=== PATIENT | female | born 2005 | race Caucasian/White ===

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

== ENCOUNTER → 2023-01-12 12:59 | Outpatient (BNVA) | payer MEDICAID, SELFPAY | PROVIDERS: PCP Family Medicine; Visit Provider Clinical Nurse Specialist Adult Health | DX: Z30.09 Encounter for other general counseling and advice on contraception (principal); Z30.016 Encounter for initial prescription of transdermal patch hormonal contraceptive device | CPT/HCPCS: 81025 ==

== ENCOUNTER → 2023-02-12 10:59 | Outpatient (BNVA) | payer MEDICAID, SELFPAY | PROVIDERS: PCP Family Medicine; Visit Provider Nurse Practitioner Family | DX: S62.034A Nondisplaced fracture of proximal third of navicular [scaphoid] bone of right wrist, initial encounter for closed fracture (principal); M25.531 Pain in right wrist; X58.XXXA Exposure to other specified factors, initial encounter | CPT/HCPCS: 73110 ==

== ENCOUNTER 2023-02-14 17:42 | Emergency (ER) | payer MEDICAID, SELFPAY ==
[2023-02-14 18:15] VITALS: BMI 30.6
[2023-02-14 18:18] VITALS: BP 104/72; PULSE 85; RESP 18; TEMP 36.7; O2SAT 98
--- NOTE | 2023-02-14 19:13 | ED_ITS ---
HPI - Extremity Problem General: Chief complaint: Extremity Injury, Upper Stated complaint: Right hand injury Time Seen by Provider: 02/14/23 19:13 History of Present Illness: 17-year-old female comes in today for injury to the right hand. Patient was seen 2 days ago at the walk-in clinic and diagnosed with a fracture of the wrist. Review of the x-rays noted a scaphoid fracture. Patient received a call today that they would not be able to see her at the local orthopedic clinic. Patient comes into the emergency room tonight in order to get further direction and treatment options for her fracture. Patient at this time has a Velcro splint in place with thumb support. Mild swelling is noted to the dorsal hand. Cap refill is intact. Review of Systems General: Reports: 10 or more systems reviewed and unremarkable except in HPI and below Musc: Reports: extremity pain and extremity swelling [facility] ED PFSH: Medical History Intrauterine Migraine headache without aura Viral sore throat Social History Smoking and tobacco status: never smoked Second hand smoke exposure: Yes Female Reproductive History: Date of last menstrual period: 01/18/23 Physical Exam Const: COMMON NORMALS: alert HENMT: COMMON NORMALS: normocephalic HEAD & SCALP: normocephalic Neck/C-Spine: COMMON NORMALS: full ROM Resp: COMMON NORMALS: normal respiratory effort Cardio: COMMON NORMALS: regular rate RATE: regular rate Back/Pelvis: COMMON NORMALS: thoracic and lumbar spine normal to inspection Extremity: RIGHT UPPER EXTREMITY: Yes hand & digits (Velcro thumb spica/wrist support, minimal swelling, normal sensation) Right hand and digits: Yes inspection, Yes palpation and Yes ROM exam Neuro: SENSORIUM/ORIENTATION: Yes alert Skin: COMMON NORMALS: turgor normal GENERAL SKIN EXAM: turgor normal Course Vital Signs: Vital signs: Vital Signs Temperature 98.0 F 02/14/23 18:18 Pulse Rate 85 02/14/23 18:18 Respiratory Rate 18 02/14/23 18:18 Blood Pressure 104/72 02/14/23 18:18 Pulse Oximetry 98 02/14/23 18:18 Oxygen Delivery Me thod Room Air 02/14/23 18:18 MDM - Extremity (Nontraumatic) Medical Decision Making 17-year-old female comes in today with injury to the right wrist that occurred 2 days prior. Review of the previous record noted a x-ray that showed a scaphoid fracture of the proximal third. Patient came in the ER today due not being able to be followed up at the local orthopedic clinic. Differential diagnosis includes but not limited to wrist fracture, wrist pain, neurovascular compromise, malingering. No significant swelling or neurovascular changes were noted on exam. Reviewed x-ray with patient. Stressed the importance of maintaining thumb splint support and need for follow-up with orthopedic surgeon. We will place a consult with case management to assist with this follow-up appointment. Patient reported understanding and agreed to plan. Discharge Plan Discharge Patient Disposition: Home Clinical Impression: Fracture of scaphoid bone of right wrist Qualifiers: Encounter type: initial encounter Scaphoid bone location: proximal third Fracture type: closed Fracture alignment: nondisplaced Qualified Code(s): S62.034A - Nondisplaced fracture of proximal third of navicular [scaphoid] bone of right wrist, initial encounter for closed fracture Condition: Stable Prescriptions: New hydrocodone-acetaminophen 5-325 mg tablet 1 tab PO Q8H PRN (Reason: pain (scale score 7-10)) Qty: 10 0RF No Action sertraline 25 mg tablet 25 mg PO DAILY Qty: 30 3RF fluticasone propionate 50 mcg/actuation spray,suspension 2 spray intranasal DAILY PRN (Reason: nasal congestion) Qty: 16 0RF Rx Instructions: administer into each nostril loratadine 10 mg tablet 10 mg PO Q24H Qty: 30 0RF Xulane 150-35 mcg/24 hr patch weekly 1 patch transdermal Q7D Qty: 3 11RF Rx Instructions: apply once weekly for 3 weeks of a 4-week cycle tramadol 50 mg tablet 50 mg PO TID PRN (Reason: pain) Qty: 30 0RF Vitamin 27 mg iron- 800 mcg tablet 1 tab PO DAILY Qty: 30 3RF Discharge Orders: Discharge ED (Routine); Ordered 02/14/23 Ordered By: Jose Cortez Referrals: Reji Guzmán MD [Primary Care Provider] - Discharge Diet: Usual diet Discharge Activity: Increase activity as tolerated Patient Instructions: Scaphoid Fracture (ED) Activity Restrictions/Additional Instructions: Keep splint in place all the time. Use acetaminophen and ibuprofen to control pain. Use hydrocodone for severe pain. Elevate hand to help with swelling. Follow-up with hand surgeon for further evaluation and treatment. Case management should contact you to assist with follow-up appointment. Return to ER for new concerns. Coding Level of Care Code ED Wallpaper Inspector for Fabian Nava
[2023-02-14 19:40] VITALS: BP 104/72; PULSE 85; RESP 18; TEMP 36.7; O2SAT 98
[2023-02-14] MEDS: HYDROcodone-acetaminophen 5-325 mg Tablet 1 TAB PO (19:40)
--- NOTE | 2023-02-15 10:40 | DCPLANNER ---
Addendum entered by Ángela Celeste 02/16/23 11:40: city maintenance manager called [facility] to confirm that patients information had been received. city maintenance manager told that patients information had been received, it will be reviewed, and clinic will call patient with appointment information. Original Note: city maintenance manager had message to refer patient to a hand surgeon in [place]. city maintenance manager spoke with patient, she would like for referral to be sent to Marie. city maintenance manager faxed patients information to [facility]. Patients information will be reviewed. Clinic will call patient with appointment information.
== END 2023-02-14 19:42 | disposition home or self-care (01) ==
PROVIDERS: Emergency Provider Nurse Practitioner Family; PCP Family Medicine
DX: S62.034A Nondisplaced fracture of proximal third of navicular [scaphoid] bone of right wrist, initial encounter for closed fracture (principal); X58.XXXA Exposure to other specified factors, initial encounter
CPT/HCPCS: 99283

== ENCOUNTER → 2023-08-06 17:49 | Outpatient (BNVA) | payer MEDICAID, SELFPAY | PROVIDERS: PCP Family Medicine; Visit Provider Nurse Practitioner | DX: R51.9 Headache, unspecified (principal); A08.4 Viral intestinal infection, unspecified | CPT/HCPCS: 87400 ==

== ENCOUNTER 2023-09-03 15:16 | Emergency (ER) | payer MEDICAID, SELFPAY ==
[2023-09-03 15:22] VITALS: BP 122/80; PULSE 83; RESP 12; TEMP 36.6; O2SAT 98; BMI 32.9
--- NOTE | 2023-09-03 15:58 | XRR_ITS ---
PROCEDURE INFORMATION: Exam: XR Chest Exam date and time: 09/03/2023 4:04 PM Age: 17 years old Clinical indication: Chest wall pain and left-sided; Additional info: L lower chest/rib pain TECHNIQUE: Imaging protocol: Radiologic exam of the chest. Views: 1 view. COMPARISON: CR XR ribs LT mn 3V w CXR1V [id number] 09/17/2017 5:28 PM FINDINGS: Lungs: No significant active pathology. Pleural spaces: No pleural effusion or pneumothorax. Heart/Mediastinum: Unremarkable. Bones/joints: No significant pathology. XR/XR chest 1V portable [id number] IMPRESSION: No significant active disease.
--- NOTE | 2023-09-03 16:07 | W.ED.GENADLT ---
Documented by User: ELÍAS Cristina 09/03/23 16:10 HPI - General Adult General: Chief complaint: Urogenital-Female Stated complaint: left side pain, sob Time Seen by Provider: 09/03/23 15:46 Source: patient Mode of arrival: ambulatory Limitations: no limitations History of Present Illness: Patient is a 17-year-old female presents to ED today with a complaint of left-sided lateral chest/abdominal pain over the past week. Patient states she initially only noticed pain when she urinated. She was not complaining of dysuria, frequency, urgency, cloudy or odorous urine. She was not having any direct flank pain. Patient states over the course of the week pain has become progressively more constant and she now feels short of breath and nauseous. She is not having any vomiting. Bowel movements have been normal. No fevers. Onset (ago): day(s) Location: chest and abdomen Severity: moderate Pain Consistency: constant Relieving factors: none Exacerbating factors: other (feels like it is worse with urination) Associated symptoms: Reports chest pain (L lateral rib/chest pain), dyspnea and nausea; Deny headache(s), malaise, rash or vomiting Treatments prior to arrival: none Review of Systems Const: Denies: fever(s), chills, body aches, fatigue or malaise Card: Reports: chest pain (L lateral rib/chest pain) Resp: Reports: dyspnea; Denies: productive cough, non-productive cough, wheezing, hemoptysis or chest congestion GI: Reports: abdominal pain and nausea; Denies: vomiting, diarrhea or change in bowel habits : Denies: flank pain, difficulty voiding, dysuria, urinary frequency, urinary urgency or urinary hesitancy Musc: Denies: neck pain, back pain, extremity pain, extremity swelling or joint pain Skin/Breast: Denies: rash Neuro: Denies: headache(s), numbness in extremities, weakness in extremities, sensory changes, lack of coordination or dizziness [facility] ED PFSH: Medical History Viral sore throat Intrauterine Migraine headache without aura Social History Smoking and tobacco/nicotine status: never used tobacco/nicotine Second hand smoke exposure: Yes Physical Exam Const: COMMON NORMALS: no acute distress, average body habitus, patient oriented x3, no limitations, healthy appearing, alert and well nourished Eye: COMMON NORMALS: no scleral icterus Chest: COMMONS NORMALS: normal inspection of the chest OTHER: TTP L lower lateral chest wall Resp: COMMON NORMALS: normal respiratory effort and clear to auscultation bilaterally AUSCULTATION: clear to auscultation bilaterally Cardio: COMMON NORMALS: regular rate and regular rhythm RATE: regular rate RHYTHM: regular rhythm GI: COMMON NORMALS: Normal to inspection, nondistended, normoactive bowel sounds present, Soft to palpation, non-tender, No hepatosplenomegaly present and no masses PALPATION: Yes Soft to palpation and Yes No hepatosplenomegaly present : COMMON NORMALS: Yes no CVA tenderness BLADDER/KIDNEY EXAM: Yes no CVA tenderness Back/Pelvis: COMMON NORMALS: no CVA tenderness and thoracic and lumbar spine normal to inspection Extremity: COMMON NORMALS: normal to inspection GENERAL: Yes normal exam except as noted Neuro: CARMELLA COMA SCALE: document GCS findings [place] coma scale eye opening: Spontaneous [place] coma scale verbal response: Orientated [place] coma scale motor response: Obey commands [place] coma scale total score: 15 COMMON NORMALS: patient oriented x3, moves all extremities, no focal motor deficits, no sensory deficits noted and gait normal SENSORIUM/ORIENTATION: Yes alert Skin: COMMON NORMALS: no rashes or lesions noted GENERAL SKIN EXAM: no rashes or lesions noted Course Vital Signs: Vital signs: Vital Signs Temperature 97.9 F 09/03/23 15:22 Pulse Rate 83 09/03/23 15:22 Respiratory Rate 12 09/03/23 15:22 Blood Pressure 122/80 09/03/23 15:22 Pulse Oximetry 98 09/03/23 15:22 Oxygen Delivery Me thod Room Air 09/03/23 15:22 [facility] - General Adult Lab Data 09/03/23 16:10 09/03/23 16:50 Radiology Impressions Chest X-Ray 09/03/23 15:58 IMPRESSION: No significant active disease. Laboratory Results WBC 6.11 10^3/uL (4.5-13.0) 09/03/23 16:10 RBC 4.46 10^6/uL (3.85-5.65) 09/03/23 16:10 Hgb 13.40 g/dL (12.4-14.8) 09/03/23 16:10 Hct 40.6 % (36-47) 09/03/23 16:10 MCV 91.0 fl (85-98) 09/03/23 16:10 MCH 30.0 pg (27-33) 09/03/23 16:10 MCHC 33.0 g/dL (30-55) 09/03/23 16:10 RDW 13.3 % (12.1-15.1) 09/03/23 16:10 Plt Count 318 10^3/cmm (157-399) 09/03/23 16:10 MPV 9.9 fL (7.4-10.4) 09/03/23 16:10 Neut % (Auto) 62.7 % 09/03/23 16:10 Lymph % (Auto) 24.7 % 09/03/23 16:10 [place] % (Auto) 9.7 % 09/03/23 16:10 Eos % (Auto) 2.1 % 09/03/23 16:10 Baso % (Auto) 0.3 % 09/03/23 16:10 Neut # (Auto) 3.83 10^3/uL (1.8-8.0) 09/03/23 16:10 Lymph # (Auto) 1.5 10^3/uL (1.5-6.5) 09/03/23 16:10 Greene # (Auto) 0.6 10^3/uL (0.2-0.9) 09/03/23 16:10 Eos # (Auto) 0.1 10^3/uL (0.0-0.8) 09/03/23 16:10 Baso # (Auto) 0.0 10^3/uL (0.0-0.1) 09/03/23 16:10 Nucleated RBC % (auto) 0 % 09/03/23 16:10 Nucleated RBCs # 0.0 /100WBC 09/03/23 16:10 Sodium 137 mmol/L (136-145) 09/03/23 16:50 Potassium 4.1 mmol/L (3.5-5.1) 09/03/23 16:50 Chloride 102 mmol/L (98-107) 09/03/23 16:50 Carbon Dioxide 24 mmol/L (22-29) 09/03/23 16:50 Anion Gap 15.1 (5-19) 09/03/23 16:50 BUN 16 mg/dL (6-20) 09/03/23 16:50 Creatinine 0.5 mg/dL (0.5-0.9) 09/03/23 16:50 GFR Calculation 158.9 mL/min (90-130) H 09/03/23 16:50 Glucose 96 mg/dL (65-115) 09/03/23 16:50 Calculated Osmolality 285 mOsm/kg (285-295) 09/03/23 16:50 Calcium 9.3 mg/dL (8.5-10.5) 09/03/23 16:50 Total Bilirubin 0.5 mg/dL (0.15-1.2) 09/03/23 16:50 AST 14 U/L (0-32) 09/03/23 16:50 ALT 21 U/L (0-33) 09/03/23 16:50 Alkaline Phosphatase 71 U/L (35-105) 09/03/23 16:50 Total Protein 7.4 g/dL (6.6-8.7) 09/03/23 16:50 Albumin 4.3 g/dL (3.5-5.2) 09/03/23 16:50 Globulin 3.1 g/dL (1.3-4.6) 09/03/23 16:50 Lipase 24 U/L (13-60) 09/03/23 16:50 HCG, Qual Negative (Negative) 09/03/23 16:50 Urine Color Yellow (Yellow) 09/03/23 15:33 Urine Appearance Sl hazy (CLEAR) A 09/03/23 15:33 Urine pH 6 (5-7) 09/03/23 15:33 Ur Specific Nesbit 1.015 (1.005-1.030) 09/03/23 15:33 Urine Protein Neg (Negative) 09/03/23 15:33 Urine Glucose (UA) Norm (Normal) 09/03/23 15:33 Urine Ketones Negative (Negative) 09/03/23 15:33 Urine Blood Neg (Negative) 09/03/23 15:33 Urine Nitrate Negative (Negative) 09/03/23 15:33 Urine Bilirubin Neg (Negative) 09/03/23 15:33 Urine Urobilinogen 1 mg/dL (Negative) H 09/03/23 15:33 Ur Leukocyte Esterase 1+ (Negative) H 09/03/23 15:33 Urine RBC None /hpf (0-2) 09/03/23 15:33 Urine WBC 5-10 /hpf (0-5) H 09/03/23 15:33 Ur Squamous Epith Cells 0-4 /hpf (0-5) H 09/03/23 15:33 Amorphous Sediment Not Reportable 09/03/23 15:33 Urine Bacteria 1+ /hpf (NONE) H 09/03/23 15:33 Discharge Plan Discharge Patient Disposition: Home Clinical Impression: Urinary tract infection, Abdominal pain, acute, left upper quadrant Condition: Stable Prescriptions: New Macrobid 100 mg capsule 100 mg PO BID 7 Days Qty: 14 0RF Rx Instructions: must administer with a meal/food Discharge Orders: Discharge ED (Routine); Ordered 09/03/23 Ordered By: Akilah Manzano Referrals: Reji Guzmán MD [Primary Care Provider] - Discharge Diet: Usual diet Discharge Activity: Increase activity as tolerated Patient Instructions: Urinary Tract Infection in Women (DC), Abdominal Pain (ED) Activity Restrictions/Additional Instructions: Lab work and imaging today revealed no acute concerns however, your urine specimen did show signs of bacteria and infection starting to develop. For that reason, we are going to start you on antibiotics today which we encourage you to take as prescribed in its entirety. This medication may make your urine a little orange or even slightly red in color which is due to the medication. We encourage you to increase your clear fluids during this time. Carefully monitor for any new onset fever, pain in your mid back, vomiting, or low abdominal pain. If any of these agree need to be seen and reevaluated again. We also encourage you to have a follow-up appoint with your primary care doctor after the course of your antibiotics is completed to ensure full resolution of any infectious findings in your urine. Sign Out Sign Out Data: Patient Sign Out occurred on 09/03/23 at 17:05. Patient's care was discussed, and care was transferred from ELÍAS Cristina to ELÍAS Negrete. Coding Level of Care Code ED Process Equipment Operator for Chg Fwd Documented by User: ELÍAS Negrete 09/03/23 17:55 HPI - General Adult General: Chief complaint: Urogenital-Female Stated complaint: left side pain, sob Time Seen by Provider: 09/03/23 15:46 PFSH ED PFSH: Medical History Viral sore throat Intrauterine Migraine headache without aura Social History Smoking and tobacco/nicotine status: never used tobacco/nicotine Second hand smoke exposure: Yes Physical Exam Neuro: CARMELLA COMA SCALE: document GCS findings [place] coma scale total score: 15 Course Vital Signs: Vital signs: Vital Signs Temperature 97.9 F 09/03/23 15:22 Pulse Rate 83 09/03/23 15:22 Respiratory Rate 12 09/03/23 15:22 Blood Pressure 122/80 09/03/23 15:22 Pulse Oximetry 98 09/03/23 15:22 Oxygen Delivery Me thod Room Air 09/03/23 15:22 MDM - General Adult Medical Decision Making Akilah Manzano PA-C: Transfer of care from Martha Ayala PA-C at 1700. Martha explained that the patient has already had a negative chest x-ray and the lab work had clotted so, had to repeat it. We are waiting on lab work but, she indicated urinalysis does show signs of an infection. Discussed treatment for UTI if all other lab work is within normal limits. Patient has relatively unremarkable lab work when it returns. Discussed with the patient negative findings on lab and x-ray but recommendation was that she receive treatment for urinary infection. Patient was given strict return precautions for signs of pyelonephritis but, should have follow-up with the primary care doctor after her course of antibiotics is completed to assure full resolution of the infection by recheck of her urinalysis. She is encouraged to increase her clear fluid intake. Patient verbalizes understanding and agreement to treatment plan. Differential Diagnosis DDx: Pleurisy, pneumonia, pleural effusion, diaphragmatic irritation, constipation, UTI, pyelonephritis Lab Data 09/03/23 16:10 09/03/23 16:50 Radiology Impressions Chest X-Ray 09/03/23 15:58 IMPRESSION: No significant active disease. Laboratory Results WBC 6.11 10^3/uL (4.5-13.0) 09/03/23 16:10 RBC 4.46 10^6/uL (3.85-5.65) 09/03/23 16:10 Hgb 13.40 g/dL (12.4-14.8) 09/03/23 16:10 Hct 40.6 % (36-47) 09/03/23 16:10 MCV 91.0 fl (85-98) 09/03/23 16:10 MCH 30.0 pg (27-33) 09/03/23 16:10 MCHC 33.0 g/dL (30-55) 09/03/23 16:10 RDW 13.3 % (12.1-15.1) 09/03/23 16:10 Plt Count 318 10^3/cmm (157-399) 09/03/23 16:10 MPV 9.9 fL (7.4-10.4) 09/03/23 16:10 Neut % (Auto) 62.7 % 09/03/23 16:10 Lymph % (Auto) 24.7 % 09/03/23 16:10 [place] % (Auto) 9.7 % 09/03/23 16:10 Eos % (Auto) 2.1 % 09/03/23 16:10 Baso % (Auto) 0.3 % 09/03/23 16:10 Neut # (Auto) 3.83 10^3/uL (1.8-8.0) 09/03/23 16:10 Lymph # (Auto) 1.5 10^3/uL (1.5-6.5) 09/03/23 16:10 [place] # (Auto) 0.6 10^3/uL (0.2-0.9) 09/03/23 16:10 Eos # (Auto) 0.1 10^3/uL (0.0-0.8) 09/03/23 16:10 Baso # (Auto) 0.0 10^3/uL (0.0-0.1) 09/03/23 16:10 Nucleated RBC % (auto) 0 % 09/03/23 16:10 Nucleated RBCs # 0.0 /100WBC 09/03/23 16:10 Sodium 137 mmol/L (136-145) 09/03/23 16:50 Potassium 4.1 mmol/L (3.5-5.1) 09/03/23 16:50 Chloride 102 mmol/L (98-107) 09/03/23 16:50 Carbon Dioxide 24 mmol/L (22-29) 09/03/23 16:50 Anion Gap 15.1 (5-19) 09/03/23 16:50 BUN 16 mg/dL (6-20) 09/03/23 16:50 Creatinine 0.5 mg/dL (0.5-0.9) 09/03/23 16:50 GFR Calculation 158.9 mL/min (90-130) H 09/03/23 16:50 Glucose 96 mg/dL (65-115) 09/03/23 16:50 Calculated Osmolality 285 mOsm/kg (285-295) 09/03/23 16:50 Calcium 9.3 mg/dL (8.5-10.5) 09/03/23 16:50 Total Bilirubin 0.5 mg/dL (0.15-1.2) 09/03/23 16:50 AST 14 U/L (0-32) 09/03/23 16:50 ALT 21 U/L (0-33) 09/03/23 16:50 Alkaline Phosphatase 71 U/L (35-105) 09/03/23 16:50 Total Protein 7.4 g/dL (6.6-8.7) 09/03/23 16:50 Albumin 4.3 g/dL (3.5-5.2) 09/03/23 16:50 Globulin 3.1 g/dL (1.3-4.6) 09/03/23 16:50 Lipase 24 U/L (13-60) 09/03/23 16:50 HCG, Qual Negative (Negative) 09/03/23 16:50 Urine Color Yellow (Yellow) 09/03/23 15:33 Urine Appearance Sl hazy (CLEAR) A 09/03/23 15:33 Urine pH 6 (5-7) 09/03/23 15:33 Ur Specific Nesbit 1.015 (1.005-1.030) 09/03/23 15:33 Urine Protein Neg (Negative) 09/03/23 15:33 Urine Glucose (UA) Norm (Normal) 09/03/23 15:33 Urine Ketones Negative (Negative) 09/03/23 15:33 Urine Blood Neg (Negative) 09/03/23 15:33 Urine Nitrate Negative (Negative) 09/03/23 15: Urine Bilirubin Neg (Negative) 09/03/23 15:33 Urine Urobilinogen 1 mg/dL (Negative) H 09/03/23 15:33 Ur Leukocyte Esterase 1+ (Negative) H 09/03/23 15:33 Urine RBC None /hpf (0-2) 09/03/23 15:33 Urine WBC 5-10 /hpf (0-5) H 09/03/23 15:33 Ur Squamous Epith Cells 0-4 /hpf (0-5) H 09/03/23 15: Amorphous Sediment Not Reportable 09/03/23 15:33 Urine Bacteria 1+ /hpf (NONE) H 09/03/23 15:33 All radiology interpretation(s) finalized by discharge Discharge Plan Discharge Patient Disposition: Home Clinical Impression: Urinary tract infection, Abdominal pain, acute, left upper quadrant Condition: Stable Prescriptions: New Macrobid 100 mg capsule 100 mg PO BID 7 Days Qty: 14 0RF Rx Instructions: must administer with a meal/food Discharge Orders: Discharge ED (Routine); Ordered 09/03/23 Ordered By: Akilah Manzano Referrals: Reji Guzmán MD [Primary Care Provider] - Discharge Diet: Usual diet Discharge Activity: Increase activity as tolerated Patient Instructions: Urinary Tract Infection in Women (DC), Abdominal Pain (ED) Activity Restrictions/Additional Instructions: Lab work and imaging today revealed no acute concerns however, your urine specimen did show signs of bacteria and infection starting to develop. For that reason, we are going to start you on antibiotics today which we encourage you to take as prescribed in its entirety. This medication may make your urine a little orange or even slightly red in color which is due to the medication. We encourage you to increase your clear fluids during this time. Carefully monitor for any new onset fever, pain in your mid back, vomiting, or low abdominal pain. If any of these agree need to be seen and reevaluated again. We also encourage you to have a follow-up appoint with your primary care doctor after the course of your antibiotics is completed to ensure full resolution of any infectious findings in your urine. Sign Out Sign Out Data: Patient Sign Out occurred on 09/03/23 at 17:05. Patient's care was discussed, and care was transferred from ELÍAS Cristina to ELÍAS Negrete. Coding Level of Care Code ED Process Equipment Operator for Fabian Nava
[2023-09-03 16:20] LABS: Add Urine Microscopic? YES; Bacteria Urine 1+ /hpf; Bilirubin Urine Neg (Negative); Blood Urine Neg (Negative); Glucose Urine UA Norm (Normal); Ketones Urine Negative (Negative); Leukocyte Esterase Urine 1+ (Negative); Nitrate Urine Negative (Negative); Protein Urine Neg (Negative); Specific Gravity, Urine 1.015 (1.005-1.030); Squamous Epithelial Cell Urine 0-4 /hpf (0-5); Urine Appearance SL Hazy (CLEAR); Urine Color Yellow (Yellow); Urobilinogen Urine 1 mg/dL (Negative); pH Urine 6 (5-7)
[2023-09-03 16:21] LABS: Add Urine Culture? No
[2023-09-03 16:23] LABS: Basophils % 0.3 %; Eosinophils # 0.1 10^3/uL (0.0-0.8); Eosinophils % 2.1 %; Hematocrit 40.6 % (36-47); Lymphocytes # 1.5 10^3/uL (1.5-6.5); Lymphocytes % 24.7 %; Mean Platelet Volume 9.9 fL (7.4-10.4); Monocytes # 0.6 10^3/uL (0.2-0.9); Monocytes % 9.7 %; Neutrophils # 3.83 10^3/uL (1.8-8.0); Neutrophils % 62.7 %; Nucleated Red Blood Cells % 0 %; Platelet Count 318 10^3/cmm (157-399); Red Blood Count 4.46 10^6/uL (3.85-5.65); Red Cell Distribution Width 13.3 % (12.1-15.1); White Blood Count 6.11 10^3/uL (4.5-13.0)
[2023-09-03 17:14] LABS: HCG, Serum Qual Negative (Negative)
[2023-09-03 17:17] LABS: Alanine Aminotransferase 21 U/L (0-33); Albumin Level 4.3 g/dL (3.5-5.2); Alkaline Phosphatase 71 U/L (35-105); Anion Gap 15.1 (5-19); Aspartate Amino Transferase 14 U/L (0-32); Blood Urea Nitrogen 16 mg/dL (6-20); Calcium 9.3 mg/dL (8.5-10.5); Carbon Dioxide 24 mmol/L (22-29); Chloride 102 mmol/L (98-107); Globulin 3.1 g/dL (1.3-4.6); Glomerular Filtration Rate 158.9 mL/min (90-130); Glucose 96 mg/dL (65-115); Lipase 24 U/L (13-60); Osmolality Calculated 285 mOsm/kg (285-295); Potassium 4.1 mmol/L (3.5-5.1); Sodium 137 mmol/L (136-145); Total Bilirubin 0.5 mg/dL (0.15-1.2); Total Protein 7.4 g/dL (6.6-8.7)
[2023-09-03 17:54] VITALS: BP 123/72; PULSE 71; RESP 14; O2SAT 99
== END 2023-09-03 17:59 | disposition home or self-care (01) ==
PROVIDERS: Emergency Medicine; Physician Assistant; Emergency Provider Physician Assistant; PCP Family Medicine
DX: N39.0 Urinary tract infection, site not specified (principal); R10.12 Left upper quadrant pain
CPT/HCPCS: 36415; 71045; 80053; 81001; 83690; 84703; 85025; 87086; 99284

== ENCOUNTER → 2023-10-31 11:03 | Outpatient (BNVA) | payer MEDICAID, SELFPAY | PROVIDERS: PCP Family Medicine; Visit Provider Family Medicine | DX: Z34.90 Encounter for supervision of normal pregnancy, unspecified, unspecified trimester (principal) | CPT/HCPCS: 80307; 81000; 81025; 84144; 84443; 84702; 85025; 86592; 86762; 86803; 86850; 86900; 87086; 87340; 87491; 87591; 87806 ==

== ENCOUNTER 2023-11-06 12:22 | Outpatient (CLI) | payer MEDICAID, SELFPAY ==
--- NOTE | 2023-11-06 12:45 | US_ITS ---
WS: [id number] EARLY OBSTETRICAL ULTRASOUND (<14 WEEKS). HISTORY: Dating US - 1-2 weeks from now COMPARISON: None available. Single intrauterine gestational sac is identified. Cardiac activity at 145 BPM. [place]-rump length emile sures 1.1 cm which corresponds to a gestation of 7w2d. Normal-appearing yolk sac and amnion demonstra jana. Small subchorionic hemorrhage. Subchorionic hemorrhage measures 1.3 x 1.6 x 1.5 cm. No free fluid. Normal size ovaries with no mass. Corpus luteum RIGHT ovary measures 2.3 x 1.3 x 1.3 cm. Normal vascu larity within each ovary. IMPRESSION: 1. Single intrauterine gestation of 7w2d with an EDC of 06/22/2024. 2. Normal cardiac activity.
== END 2023-11-06 12:23 | disposition home or self-care (01) ==
LOC: RAD 12:23
PROVIDERS: PCP Family Medicine; Visit Provider Family Medicine
DX: Z34.80 Encounter for supervision of other normal pregnancy, unspecified trimester (principal); Z3A.01 Less than 8 weeks gestation of pregnancy
CPT/HCPCS: 76801; 76817

== ENCOUNTER 2024-01-31 11:43 | Outpatient (CLI) | payer MEDICAID, SELFPAY ==
--- NOTE | 2024-01-31 12:00 | USR_ITS ---
PROCEDURE INFORMATION: Exam: US After First Trimester, Transabdominal Exam date and time: 01/31/2024 11:59 AM Age: 18 years old Clinical indication: Screening exam; Routine US, uterus; Additional info: Anatomy US - 9 weeks from now TECHNIQUE: Imaging protocol: Real-time transabdominal obstetrical ultrasound of the maternal pelvis and a second or third trimester with image documentation. COMPARISON: US OB <=14 wk fetus w transvag 11/06/2023 12:35 PM FINDINGS: Single living fetus in cephalic position. Posterior placenta. No visible placental abnormality on the provided images. Amniotic fluid volume within normal limits. Cervical length was estimated with transabdominal scanning, measuring approximately 4.0 cm. No definite cervical canal dilation or fluid on the provided images. BPD: , 4.8 cm. , 20 weeks, 3 days HC: , 17.5 cm. , 20 weeks, 0 days AC: , 14.6 cm. , 19 weeks, 6 days FL: , 3.2 cm. , 19 weeks, 6 days Composite age: 20 weeks, 0 days. Estimated weight: 321 grams, (0 lb 11 oz). heart activity documented by the technologist, 144 bpm. Visualized anatomy on the provided images appears within normal limits for gestation, including four-chamber heart, stomach, kidneys, urinary bladder, three-vessel cord, cord insertion, spine, cerebral lateral ventricles, cerebellum, and cisterna magna. No visible maternal adnexal abnormality. The urinary bladder was not completely evaluated/imaged at this time. US/US OB >= 14 weeks fetus [id number] IMPRESSION: 1. Single living fetus, composite age: 20 weeks, 0 days. This represents appropriate interval growth. 2. Posterior placenta. 3. Normal amniotic fluid volume. 4. Other details discussed above.
== END 2024-01-31 11:44 | disposition home or self-care (01) ==
LOC: RAD 11:45
PROVIDERS: PCP Family Medicine; Visit Provider Family Medicine
DX: Z34.80 Encounter for supervision of other normal pregnancy, unspecified trimester (principal)
CPT/HCPCS: 76805

== ENCOUNTER 2024-03-09 19:05 | Outpatient (CLI) | payer MEDICAID, SELFPAY ==
[2024-03-09 19:05] VITALS: BMI 34.9
[2024-03-09 19:23] VITALS: BP 107/55; PULSE 82
[2024-03-09 19:38] VITALS: BP 108/57; PULSE 76
[2024-03-09 19:53] VITALS: BP 117/58; PULSE 77
[2024-03-09 20:08] VITALS: BP 103/58; PULSE 73
[2024-03-09 20:23] LABS: Bilirubin Urine Negative (Negative); Blood Urine Negative (Negative); Glucose Urine UA Negative (Normal); Ketones Urine Trace (Negative); Leukocyte Esterase Urine Negative (Negative); Nitrate Urine Negative (Negative); Protein Urine Trace (Negative); Specific Gravity, Urine 1.029 (1.005-1.030); Urine Appearance Clear (CLEAR); Urine Color Yellow (Yellow)
[2024-03-09 20:31] LABS: Bacteria Urine Trace /hpf; Hyaline Casts Urine 1.21 /lpf; RBC Urine 0-2 /hpf (0-2); WBC Urine 0-5 /hpf (0-5)
== END 2024-03-09 21:38 | disposition home or self-care (01) ==
LOC: OPOB 19:07 → OBGYN 19:07
PROVIDERS: PCP Family Medicine; Visit Provider Family Medicine
DX: O26.899 Other specified pregnancy related conditions, unspecified trimester (principal); Z3A.00 Weeks of gestation of pregnancy not specified; R10.9 Unspecified abdominal pain
CPT/HCPCS: 81001

== ENCOUNTER → 2024-03-25 10:01 | Outpatient (BNVA) | payer MEDICAID, SELFPAY | PROVIDERS: PCP Family Medicine; Visit Provider Family Medicine | DX: Z34.80 Encounter for supervision of other normal pregnancy, unspecified trimester (principal) | CPT/HCPCS: 82950 ==

== ENCOUNTER → 2024-05-16 11:04 | Outpatient (BNVA) | payer MEDICAID, SELFPAY | PROVIDERS: PCP Family Medicine; Visit Provider Family Medicine | DX: O26.851 Spotting complicating pregnancy, first trimester (principal) | CPT/HCPCS: 85025 ==

== ENCOUNTER → 2024-05-23 08:21 | Outpatient (BNVA) | payer MEDICAID, SELFPAY | PROVIDERS: PCP Family Medicine; Visit Provider Family Medicine | DX: Z34.90 Encounter for supervision of normal pregnancy, unspecified, unspecified trimester (principal) | CPT/HCPCS: 87081 ==

== ENCOUNTER 2024-05-28 06:08 | Outpatient (CLI) | payer MEDICAID, SELFPAY ==
--- NOTE | 2024-05-28 06:30 | USR_ITS ---
PROCEDURE INFORMATION: Exam: US , Limited Exam date and time: 05/28/2024 6:43 AM Age: 18 years old Clinical indication: Screening exam; Routine US, uterus; Additional info: Measuring sga - US this coming week please LABS AND CLINICAL REPORTS: Gestational age (Established): 36 w 5 d Estimated due date (Established): 06/20/2024 TECHNIQUE: Imaging protocol: Real-time ultrasound of the maternal uterus with image documentation. Exam focused on the clinical indication. COMPARISON: US OB >= 14 weeks fetus [id number] 01/31/2024 11:59 AM FINDINGS: Gestation: Single live intrauterine gestation. heart rate: 130 bpm. presentation and position: Cephalic. Placenta: Posterior. Amniotic fluid (Qualitative): Adequate amount of amniotic fluid. BIOMETRY: Gestational age (AUA): 36 weeks 4 days Estimated due date (AUA): 06/21/2024 Estimated weight: 2936.12 g. EFW by AC, BPD, FL, HC, [place] 1985, 47% percentile Biparietal diameter (BPD): 9 cm. EGA (BPD) is 36 w 3 d. 56.1 % percentile Head circumference (HC): 32.73 cm. EGA (HC) is 37 w 1 d. 32.4 % percentile Abdominal circumference (AC): 32.57 cm. EGA (AC) is 36 w 3 d. 56.3 % percentile Femur length (FL): 7.02 cm. EGA (FL) is 36 w 0 d. 29.2 % percentile HC/AC: 1. (Normal range: 0.92 - 1.06) FL/HC: 21.45. (Normal range: 20.5 - 22.39) FL/BPD: 78. (Normal range: 71 - 87) FL/AC: 21.55. (Normal range: 20 - 24) MATERNAL: Cervix: Cervical length measures 2.9 cm. US/US OB limited [id number] IMPRESSION: Single live intrauterine gestation with estimated age of 36 weeks 4 days and weight of 2136 g.
== END 2024-05-28 06:09 | disposition home or self-care (01) ==
LOC: RAD 06:08
PROVIDERS: PCP Family Medicine; Visit Provider Family Medicine
DX: Z34.83 Encounter for supervision of other normal pregnancy, third trimester (principal)
CPT/HCPCS: 76815

== ENCOUNTER 2024-06-10 11:05 | Outpatient (CLI) | payer MEDICAID, SELFPAY ==
[2024-06-10 11:15] VITALS: BMI 34.9
[2024-06-10 11:21] VITALS: BP 116/70; PULSE 92
[2024-06-10 13:23] VITALS: BP 116/71; PULSE 82
[2024-06-10 13:35] VITALS: BP 116/71; PULSE 82; RESP 16; O2SAT 99
== END 2024-06-10 13:40 | disposition home or self-care (01) ==
LOC: OPOB 11:06 → OBGYN 11:12
PROVIDERS: PCP Family Medicine; Visit Provider Family Medicine
DX: O26.899 Other specified pregnancy related conditions, unspecified trimester (principal); Z3A.00 Weeks of gestation of pregnancy not specified; R10.9 Unspecified abdominal pain
CPT/HCPCS: 59025; 99211

== ENCOUNTER 2024-06-16 22:09 | Inpatient (IN) | payer MEDICAID, SELFPAY ==
[2024-06-16] VITALS (8 sets, daily range): BP systolic 95–113; BP diastolic 56–65; PULSE 67–88; TEMP 35.7–35.8; BMI 35.5
--- NOTE | 2024-06-16 21:57 | PM.HP ---
Providers/Chief Complaint Primary Care Provider: Reji Guzmán MD Chief Complaint: Contractions History of Present Illness Mary Beth Brice is a 18 year old @ 39.3 weeks by LMP c/w 7 wk US. Preg c/b h/o IUGR, h/o anemia, depression on Sertraline. The patient presented to labor and delivery triage on the evening of 06/16/2024 due to increasing contractions. She said that they were increasing to every 3 to 5 minutes. For this reason she came in. In triage she was noted to be 4 cm dilated upon arrival. After 2 hours she changed to 5 cm dilation. She has not noted any leakage of fluid, vaginal bleeding, chest pains, shortness of breath, nausea, vomiting, diarrhea, constipation, dysuria, fever. Medications/Allergies Home Medications Medication Instructions Recorded Confirmed Last Taken Type vitamin with calcium 1 tab PO DAILY 10/31/23 06/16/24 06/15/24 History no.72-iron 27 mg-folic acid 1 mg tablet doxylamine succinate 25 mg tablet See Rx Instructions .Route 11/30/23 06/16/24 Unknown Rx .COMPLEX PRN allergy symptoms #30 tabs pyridoxine (vitamin B6) 100 mg 100 mg PO BID PRN Nausea #60 tabs 11/30/23 06/16/24 Unknown Rx tablet ferrous sulfate 325 mg (65 mg 325 mg PO BID #60 tabs 05/20/24 06/16/24 06/15/24 Rx iron) tablet sertraline 25 mg tablet 12.5 mg PO DAILY 05/30/24 06/16/24 Unknown History Allergies Allergy/AdvReac Type Severity Reaction Status Date / Time No Known Allergies Allergy Verified 05/30/24 10:57 PFSH Acute PFSH: Medical History Viral sore throat Intrauterine Migraine headache without aura Surgical History No pertinent past surgical history Social History Smoking and tobacco/nicotine status: unknown if used tobacco/nicotine Second hand smoke exposure: Yes Alcohol intake: never Substance/Drug Use: never 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 Reproductive History: : 2 Vitals/I&O/Wt Last Vital Signs Temp 96.4 F L 06/16/24 19:35 Pulse 80 06/16/24 20:28 BP 105/65 06/16/24 20:28 Weight last 48 hrs Weight 188 lb Physical Exam Narrative: General: Alert and oriented x3 Eyes: Pupils equal round and reactive to light and accommodation Mouth: Mucous membranes moist, pharynx non-erythematous Cardiac: Regular rate and rhythm without murmurs Lungs: Clear to auscultation bilaterally without wheezes, crackles or rhonchi Abdomen: Soft, non-tender, fundus consistent with gestational age Extremities: Trace edema in the bilateral lower extremities A&P Assessment and plan (1) Supervision of normal intrauterine in multigravida: The patient is doing well overall at this time. She is in spontaneous labor. heart tones are category 1. The patient is GBS negative. We will plan to proceed with routine intrapartum management. If the patient is not making change in 2 hours, we will start IV Pitocin to augment labor. The patient may receive a laboring epidural when she desires. She is currently intact. All questions were answered. The patient and her significant other are in agreement with the current plan of care. (2) Anxiety and depression: (3) Spontaneous onset of labor: Attestations Medical Necessity Statement*: The patient will be here for greater than 2 midnights due to routine intrapartum and management of labor and delivery. Coding Level of Care Code Acute Code for Chg Fwd Diagnoses Supervision of normal intrauterine in multigravida Z34.80 Anxiety and depression F41.9; F32.9 Spontaneous onset of labor
[2024-06-16 22:18] LABS: Basophils % 0.3 %; Eosinophils % 0.3 %; Hematocrit 32.9 % (36-47); Lymphocytes # 1.6 10^3/uL (1.5-6.5); Lymphocytes % 20.1 %; Mean Corpuscular HGB Conc 32.8 g/dL (30-55); Mean Corpuscular Volume 88.2 fl (85-98); Mean Platelet Volume 9.9 fL (7.4-10.4); Monocytes # 0.8 10^3/uL (0.2-0.9); Monocytes % 9.7 %; Neutrophils # 5.45 10^3/uL (1.8-8.0); Neutrophils % 69.2 %; Nucleated Red Blood Cells % 0 %; Platelet Count 193 10^3/cmm (157-399); Red Blood Count 3.73 10^6/uL (3.85-5.65); Red Cell Distribution Width 13.5 % (12.1-15.1); White Blood Count 7.86 10^3/uL (4.5-13.0)
[2024-06-16] MEDS: lactated ringers 1,000 ML 999 ML IV (23:53)
[2024-06-17] VITALS (74 sets, daily range): BP systolic 78–128; BP diastolic 42–93; PULSE 53–103; RESP 16; TEMP 36.7; O2SAT 97–100
[2024-06-17] MEDS: lactated ringers 1,000 ML 999 ML IV ×2 (00:59→06:01)
--- NOTE | 2024-06-17 01:10 | ANES.PREANE2 ---
Pre-Anesthetic Assessment Height/Weight: Height 1.55 m Weight 85.275 kg Temp Pulse BP Pulse Ox O2 Del Method 96.3 F L 77 107/69 100 Room Air 06/16/24 22:38 06/17/24 01:08 06/17/24 01:07 06/17/24 01:08 06/16/24 22:13 Preop Diagnosis: Labor pain AINSLEY Was Beta Rayna taken within 24 hours: N/A Was Clonidine taken within 24 hours: N/A Social No alcohol and No tobacco Exam alert, oriented x 3, clear to auscultation bilaterally and regular rate & rhythm Airway Submandibular: within normal limits Cervical ROM: within normal limits Mallampati: Class III Dentition: full History/ROS No significant history except as noted and No significant complaints CV/HEM None reported None reported Hepatic None reported GI None reported Metabolic None reported Musc/skel None reported Neuropsych Anxiety Anesthetic Plan ASA status: 2 Anesthesia: Anesthesia Evaluation Risk of > 500 ml blood loss (7ml/kg in children): No Medications/Allergies Home Medications Medication Instructions Recorded Confirmed Last Taken Type vitamin with calcium 1 tab PO DAILY 10/31/23 06/16/24 06/15/24 History no.72-iron 27 mg-folic acid 1 mg tablet doxylamine succinate 25 mg tablet See Rx Instructions .Route 11/30/23 06/16/24 Unknown Rx .COMPLEX PRN allergy symptoms #30 tabs pyridoxine (vitamin B6) 100 mg 100 mg PO BID PRN Nausea #60 tabs 11/30/23 06/16/24 Unknown Rx tablet ferrous sulfate 325 mg (65 mg 325 mg PO BID #60 tabs 05/20/24 06/16/24 06/15/24 Rx iron) tablet sertraline 25 mg tablet 12.5 mg PO DAILY 05/30/24 06/16/24 Unknown History Allergies Allergy/AdvReac Type Severity Reaction Status Date / Time No Known Allergies Allergy Verified 05/30/24 10:57 Current Medications Generic Name Dose Route Start Last Admin Trade Name Freq PRN Reason Stop Dose Admin Lactated Ringer's 1,000 mls @ 999 mls/hr 06/16/24 22:10 06/17/24 00:59 Lactated Ringers IV 999 mls/hr .Q1H1M PRN Administration Per L&D Rescitation Protocol Lactated Ringer's 1,000 mls @ 999 mls/hr 06/16/24 22:15 06/17/24 00:58 Lactated Ringers IV Infused .Q1H1M PRN Infusion See label comments [facility] Anesthesia Medical History Viral sore throat Intrauterine Migraine headache without aura Surgical History No pertinent past surgical history Social History Smoking and tobacco/nicotine status: unknown if used tobacco/nicotine Second hand smoke exposure: Yes Alcohol intake: never Substance/Drug Use: never 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 Reproductive History : 2 Data Anesthesia 06/16/24 22:05 Short CBC 06/16/24 Range/Units 22:05 WBC 7.86 (4.5-13.0) 10^3/uL Hgb 10.80 L (12.4-14.8) g/dL Hct 32.9 L (36-47) % MCV 88.2 (85-98) fl Plt Count 193 (157-399) 10^3/cmm Neut % (Auto) 69.2 % Neut # (Auto) 5.45 (1.8-8.0) 10^3/uL Blood Bank 06/16/24 22:05 Blood Type O Positive Rho(D) Type Rh positive Antibody Screen Negative Cardiac Studies: No Data to Display
--- NOTE | 2024-06-17 01:12 | ANES.PROC ---
Anesthesia Procedures Procedure/Date: 06/17/24 Epidural: Time Out Performed: Yes Consents Signed: Procedure Consent Consent: requested by attending/covering physician, from patient, risks and benefits reviewed and patient agrees to proceed Lumbar Level: L2-L3 Epidural position: sitting Epidural procedure: sterile prep of area, 1% lidocaine to numb the area, 18 g needle, neg for paresthesia, test dose given, 1.5% xylocaine 1:200k epi (4cc), 0.2% Ropivacaine bolus ml (4cc and Fentanyl 100mcg), placed PCEA, no systemic response, sterile dressing applied and 0.2% Ropiavacaine @ mls/hr (13cc/hour) Additional Comments: Pt tolerated well
[2024-06-17] MEDS: ROPivacaine syringe 100 MG/50 ML SYRINGE 13 MG EPIDURAL ×2 (01:15→04:54)
[2024-06-17] MEDS: oxytocin 30 UNIT/500 ML BAG IV (03:30)
[2024-06-17] MEDS: ondansetron 2 mg/ML SDV 2 mL 4 MG IVP (05:10)
--- NOTE | 2024-06-17 08:27 | P.PCNOB_ITS ---
Delivery Note: Date of delivery: June 17, 2024 Pre-delivery diagnoses: 1. Intrauterine at 39.4 weeks gestation 2. Anemia 3. Depression on sertraline 4. History of IUGR without IUGR in this 5. Spontaneous labor Post-delivery diagnoses: 1. Intrauterine status post s pontaneous vaginal delivery at 39.4 weeks gestation 2. Anemia 3. Depression on sertraline 4. History of IUGR without IUGR in this 5. Spontaneous labor 6. Delivery of healthy infant male rosalia olmedong 7 pounds 10 ounces with Apgars of 8 and 9 Procedure: Spontaneous vaginal delivery Delivering Physician: Reji Guzmán MD Estimated blood loss (mL): 100 Findings: 1. Healthy male weighing 7 pound s 10 ounces with Apgars of 8 and 9. 2. Intact placenta with central umbilic al cord insertion site Pre-Delivery Course: Mary Beth Brice is a 18 year old G2 NOW P2 status post spontaneous vaginal delivery @ 39.4 weeks by LMP c/w 7 wk US. Preg c/b h/o IUGR, h/o anemia, depression on Sertraline. The patient presented to labor and delivery triage on the evening of 06/16/2024 due to increasing contractions. She said that they were increasing to every 3 to 5 minutes. For this reason she came in. In triage she was noted to be 4 cm dilated upon arrival. After 2 hours she changed to 5 cm dilation. The patient continues to make change on her own up to 6 cm dilation. At that point her contractions started to space out. For this reason IV Pitocin was added to augment labor. The patient received a laboring epidural and this controlled her pain well. The patient continued to make change and was noted to be complete with a bulging bag at 7:51 AM on 06/17/2024. AROM was performed at that time and clear fluid was noted. Delivery: The patient began pushing at 8:02 AM on 06/17/2024. The patient pushed well and the infant delivered in the OA position at 8:07 AM on 06/17/2024. The infant's left shoulder was anterior shoulder and it delivered with ease. There was no nuchal cord. The rest of the body delivered without complication. The infant's mouth and nose were bulb suction by myself and the was breathing and vigorous upon delivery. The was placed on the mother's chest where the nurses were awaiting to care for him. The cord was clamped by myself after approximately 1 minute and cut by the infant's father. Cord blood was obtained. The cord was then drained of blood and traction was placed on umbilical cord. The placenta delivered without complication at 8:11 AM on 06/17/2024. The cervix was inspected and no lacerations were noted. The vaginal wall was inspected and no lacerations were noted. A mild abrasion was noted on the right external vaginal wall. No suturing was needed. EBL was 100 mL. Currently both the and mother are doing well. History History History 2 Term 2 0 Miscarriages/Ectopic 0 Living Children 2 Past Pregnancies Del. Date GA/Weeks Outcome Route Wt Inf Gender Labor Lgth Comp. Anesth esia Location 09/28/22 39 live - full term Vaginal 5 lb 15 oz Male [facility] 06/17/24 39 live - full term Vaginal 7 lb 10 oz Male 13 hr [facility] Delivery Date: 09/28/22 Last Updated by: Reji Guzmán MD Rapid change from 2 cm to complete in just over an hour. Asymmetric IUGR, anemia A&P Assessment and plan (1) Spontaneous vaginal delivery: Coding Level of Care Code Acute Code for Chg Fwd Diagnoses Spontaneous vaginal delivery O80
[2024-06-17] MEDS: ibuprofen 800 mg tablet PO ×2 (15:06→20:50)
--- NOTE | 2024-06-17 16:00 | ANE.PACU2 ---
Inpatient post-anesthesia follow up: Airway intact: Yes Vital signs: Temperature 98.4 F Pulse Rate 16 Respiratory Rate 85 Blood Pressure 111/75 Pulse Oximetry 98 Oxygen Delivery Me thod Room Air Oxygen Flow Rate Fraction of Inspir ed Oxygen Hydration adequate: Yes Nausea and vomiting: No Pain level: 1 Mental status: Baseline Epidural Start/End: Epidural Start Date: 06/16/24 Epidural Start Time: 00:45 Epidural End Date: 06/17/24 Epidural End Time: 14:50
[2024-06-17 20:31] LABS: Hematocrit 30.5 % (36-47); Mean Corpuscular HGB Conc 32.8 g/dL (30-55); Mean Corpuscular Hemoglobin 28.7 pg (27-33); Mean Corpuscular Volume 87.6 fl (85-98); Mean Platelet Volume 10.3 fL (7.4-10.4); Platelet Count 171 10^3/cmm (157-399); Red Blood Count 3.48 10^6/uL (3.85-5.65); Red Cell Distribution Width 13.7 % (12.1-15.1); White Blood Count 7.62 10^3/uL (4.5-13.0)
[2024-06-17] MEDS: docusate sodium 100 mg Capsule PO (20:49)
[2024-06-18 04:42] VITALS: BP 97/65; PULSE 67; RESP 16; TEMP 36.7; O2SAT 98
[2024-06-18] MEDS: PRENATAL VIT NO.130/IRON/FOLIC 1 EACH TABLET PO (09:38)
[2024-06-18] MEDS: ibuprofen 800 mg tablet PO (09:39)
[2024-06-18] MEDS: docusate sodium 100 mg Capsule PO (09:39)
[2024-06-18 12:00] VITALS: BP 111/75; PULSE 85; RESP 16; TEMP 36.9; O2SAT 98
[2024-06-18 12:18] VITALS: BP 111/75; PULSE 16; RESP 85; TEMP 36.9; O2SAT 98
--- NOTE | 2024-06-18 14:42 | P.DS_ITS ---
Discharge Providers Date of Admission: 06/16/24 22:09 Date of Discharge: June 18, 2024 Attending Provider at Admission: Reji Guzmán MD Attending Provider at Discharge: Reji Guzmán MD Primary Care Provider: Reji Guzmán MD Diagnoses at Discharge Discharge Diagnosis (1) Spontaneous vaginal delivery: Status: Resolved Other Information Additional DC diagnoses/information: 1. Intrauterine status post spontaneous vaginal delivery at 39.4 weeks gestation 2. Anemia 3. Depression on sertraline 4. History of IUGR without IUGR in this 5. Spontaneous labor 6. Delivery of healthy infant male weighing 7 pounds 10 ounces with Apgars of 8 and 9 Reason for Visit Reason for Visit: Contractions Brief History: Mary Beth Brice is a 18 year old G2 NOW P2 status post spontaneous vaginal delivery @ 39.4 weeks by LMP c/w 7 wk US. Preg c/b h/o IUGR, h/o anemia, depression on Sertraline. The patient presented to labor and delivery triage on the evening of 06/16/2024 due to increasing contractions. She said that they were increasing to every 3 to 5 minutes. For this reason she came in. In triage she was noted to be 4 cm dilated upon arrival. After 2 hours she changed to 5 cm dilation. The patient continued to make change on her own up to 6 cm dilation. At that point her contractions started to space out. For this reason IV Pitocin was ad ded to augment labor. The patient received a laboring epidural and this controlled her pain well. The patient continued to make change and was noted to be complete with a bulging bag at 7:51 AM on 06/17/2024. AROM was performed at that time and clear fluid was noted. Hospital Course Hospital Course The patient began pushing at 8:02 AM on 06/17/2024. The patient pushed well and the infant delivered in the OA position at 8:07 AM on 06/17/2024. She had no complications . She is doing well at the time of discharge. She is ambulating, voiding, passing gas and tolerating food by mouth. Her pain is well controlled and bleeding is decreasing well. She will be discharged home and plan to follow up in clinic in the next 6 weeks or sooner if needed. Routine discharge instructions were discussed. All questions were answered. Physical Exam Narrative: General: Alert and oriented x3 Cardiac: Regular rate and rhythm without murmurs Lungs: Clear to auscultation bilaterally without wheezes, crackles or rhonchi Abdomen: Soft, mild tenderness over uterus. The uterus is firm and 2 cm below the umbilicus. Extremities: Trace edema in the bilateral lower extremities Urinary Catheter Management: Chapin Latex: Cath Placed During This Visit: yes, but has since been removed by the nurse Reason for Continuing Indwelling Catheter: Decision to DC Catheter Urinary Catheter Date of Insertion: 06/17/24 Urinary Catheter Time of Insertion: 01:30 Date Urinary Catheter Removed: 06/17/24 Time Urinary Catheter Discontinued: 08:00 Discharge Data Studies Completed and Pending Laboratory Results WBC 7.62 10^3/uL (4.5-13.0) 06/17/24 20:18 RBC 3.48 10^6/uL (3.85-5.65) L 06/17/24 20:18 Hgb 10.00 g/dL (12.4-14.8) L 06/17/24 20:18 Hct 30.5 % (36-47) L 06/17/24 20:18 MCV 87.6 fl (85-98) 06/17/24 20:18 MCH 28.7 pg (27-33) 06/17/24 20:18 MCHC 32.8 g/dL (30-55) 06/17/24 20:18 RDW 13.7 % (12.1-15.1) 06/17/24 20:18 Plt Count 171 10^3/cmm (157-399) 06/17/24 20:18 MPV 10.3 fL (7.4-10.4) 06/17/24 20:18 Neut % (Auto) 69.2 % 06/16/24 22:05 Lymph % (Auto) 20.1 % 06/16/24 22:05 [place] % (Auto) 9.7 % 06/16/24 22:05 Eos % (Auto) 0.3 % 06/16/24 22:05 Baso % (Auto) 0.3 % 06/16/24 22:05 Neut # (Auto) 5.45 10^3/uL (1.8-8.0) 06/16/24 22:05 Lymph # (Auto) 1.6 10^3/uL (1.5-6.5) 06/16/24 22:05 [place] # (Auto) 0.8 10^3/uL (0.2-0.9) 06/16/24 22:05 Eos # (Auto) 0.0 10^3/uL (0.0-0.8) 06/16/24 22:05 Baso # (Auto) 0.0 10^3/uL (0.0-0.1) 06/16/24 22:05 Nucleated RBC % (auto) 0 % 06/16/24 22:05 Nucleated RBCs # 0.0 /100WBC 06/16/24 22:05 Blood Type O Positive 06/16/24 22:05 Rho(D) Type Rh positive 06/16/24 22:05 Antibody Screen Negative 06/16/24 22:05 Vitals Last Vital Signs Temp 98.4 F 06/18/24 12:18 Pulse 16 L 06/18/24 12:18 Resp 85 H 06/18/24 12:18 BP 111/75 06/18/24 12:18 Pulse Ox 98 06/18/24 12:18 O2 Del Method Room Air 06/18/24 12:00 Discharge Plan Discharge Patient Disposition: Home Condition: Stable Prescriptions: New ibuprofen 800 mg Tablet 800 mg PO TID Qty: 30 0RF Continued doxylamine succinate 25 mg tablet See Rx Instructions .Route .COMPLEX PRN (Reason: allergy symptoms) Qty: 30 6RF Rx Instructions: Take 1 tab by mouth each evening and 1/2 tab in the am as needed for nausea PRN; pyridoxine (vitamin B6) 100 mg tablet 100 mg PO BID PRN (Reason: Nausea) Qty: 60 0RF PNV,calcium [id number] acid 27 mg iron- 1 mg tablet 1 tab PO DAILY sertraline 25 mg tablet 12.5 mg PO DAILY ferrous sulfate 325 mg (65 mg iron) tablet 325 mg PO BID Qty: 60 3RF Discharge Orders: Discharge Order (Routine); Ordered 06/18/24 Ordered By: Reji Guzmán Referrals: Reji Guzmán MD [Primary Care Provider] - (FOLLOW UP WITH DR. GUZMÁN ON July AT 9AM) Discharge Diet: Regular Discharge Activity: Resume usual activity Patient Instructions: Depression (DC), Opioid Safety (DC), Preeclampsia and Eclampsia After Delivery (GEN), Hemorrhage (DC), OB Discharge Report, OB Food/Drug Interaction Guide, Opioid Safety, OB [facility], OB Vaginal Deliveries, Abnormal Bleeding Discharge Attestations Time Spent in Discharge Care*: greater than 30 min Quality Metrics Clinical Quality Measures [ No reported AMI, CVA or VTE this stay] Coding Level of Care Code Acute Code for Chg Fwd Diagnoses Spontaneous vaginal delivery O80
== END 2024-06-18 12:00 | disposition home or self-care (01) | DRG 807 ==
LOC: OPOB 22:10 → OBGYN 22:10
PROVIDERS: Admitting Provider Family Medicine; PCP Family Medicine; Visit Provider Family Medicine
DX: O99.344 Other mental disorders complicating childbirth (principal); Z37.0 Single live birth; Z3A.39 39 weeks gestation of pregnancy; F32.A Depression, unspecified; F41.9 Anxiety disorder, unspecified
CPT/HCPCS: 36415; 51702; 59025; 59409; 85025; 85027; 86850; 86900; 96374; 98960; 99211; J2405; J2590; J2795; J3010; J7120